=== PATIENT | male | born 1985 | race Caucasian/White ===

== ENCOUNTER 2017-09-23 07:02 | Observation (INO) ==
[2017-09-23] MEDS ORDERED: MORPHINE 4 MG/1 ML VIAL IV STA (07:26)
[2017-09-23] MEDS ORDERED: ONDANSETRON 4 MG/2 ML VIAL IV STA (07:26)
[2017-09-23 07:52] LABS: Basophils % 0.5 % (0.0-0.8); Eosinophils # 0.5 10*3/uL (0.0-0.87); Eosinophils % 5.4 % (0.00-10.9); Hemoglobin 13.7 GM/DL (14.0-18.0); Immature Granulocytes % 0.5 %; Immature Granulocytes Absolute 0.04 #; Lymphocytes % 23.3 % (21.2-54.2); Mean Corpuscular HGB Conc 35.1 GM/DL (32-36); Mean Corpuscular Hemoglobin 31 PG (27-34); Mean Corpuscular Volume 87.6 FL (87-102); Mean Platelet Volume 10.2 FL (9.6-12.0); Monocytes # 0.7 10*3/uL (0.11-0.8); Monocytes % 8.4 % (1.7-12.7); Neutrophils # 5.4 10*3/uL (1.4-7.4); Neutrophils % 61.9 % (38.7-73.9); Platelet Count 226 T/CUMM (130-400); Red Blood Count 4.45 MC/CUMM (3.8-5.5); Red Cell Distribution Width 12.2 % (9.3-17.3); White Blood Count 8.7 T/CUMM (4-12)
[2017-09-23 08:15] LABS: Alanine Aminotransferase 40 U/L (16-61); Albumin 3.6 G/DL (3.4-5.0); Alkaline Phosphatase 87 U/L (45-117); Aspartate Amino Transferase 20 U/L (0-37); Bilirubin,Total < 0.39 MG/DL (0.2-1.0); Blood Urea Nitrogen 20 MG/DL (7-18); Calcium 8.6 MG/DL (8.5-10.1); Glucose 111 MG/DL (74-106); Osmolality,Calculated 284.3 MOS/KG (273-304); Potassium 3.9 MMOL/L (3.5-5.1); Sodium 141 MMOL/L (136-145); Total Protein 7.9 G/DL (6.4-8.3); Troponin I Only < 0.015 NG/ML (0.00-0.045)
[2017-09-23] MEDS ORDERED: KETOROLAC 30 MG/1 ML VIAL IV STA (09:13)
[2017-09-23] MEDS ORDERED: KETOROLAC 30 MG/1 ML VIAL ONE ×2 (09:14→14:13)
[2017-09-23] MEDS ORDERED: cefOXitin 2,000 MG in SYRINGE 1 EACH IV ONE (10:42)
[2017-09-23] MEDS ORDERED: BUPIVACAINE MPF 0.25% /EPI 30 ML VIAL ONE (11:50)
[2017-09-23] MEDS ORDERED: LIDOCAINE 1%/EPI INJ 20 ML VIAL ONE (11:50)
[2017-09-23] MEDS ORDERED: TISSUE ADHESIVE 1 EACH APPLICATOR TOP ONE (11:50)
[2017-09-23] MEDS ORDERED: ONDANSETRON 4 MG/2 ML VIAL IV PRN ×2 (13:48→14:03)
[2017-09-23] MEDS ORDERED: oxyCODONE/ACETAMINOPHEN 5-325 MG TABLET PO PRN (13:48)
[2017-09-23] MEDS ORDERED: PROMETHAZINE INJ 25 MG in SODIUM CHLORIDE 0.9% 50 ML IV PRN (14:03)
[2017-09-23] MEDS ORDERED: MEPERIDINE 25 MG/1 ML VIAL IV PRN (14:03)
[2017-09-23] MEDS ORDERED: diphenhydrAMINE 50 MG/1 ML VIAL IV PRN (14:03)
[2017-09-23] MEDS ORDERED: MORPHINE 10 MG/1 ML VIAL IV PRN (14:03)
[2017-09-23] MEDS ORDERED: fentaNYL 100 MCG/2 ML VIAL ONE (14:12)
[2017-09-23] MEDS ORDERED: SEVOFLURANE 1 UNIT/15 MINUTE INH ONE (14:12)
[2017-09-23] MEDS ORDERED: MIDAZOLAM 2 MG/2 ML VIAL ONE (14:12)
[2017-09-23] MEDS ORDERED: PROPOFOL 200 MG/20 ML VIAL IV ONE (14:12)
[2017-09-23] MEDS ORDERED: ACETAMINOPHEN 1,000 MG/100 ML VIAL IV ONE (14:13)
[2017-09-23] MEDS ORDERED: DEXAMETHASONE 10 MG/1 ML VIAL ONE (14:13)
[2017-09-23] MEDS ORDERED: ONDANSETRON 4 MG/2 ML VIAL ONE ×2 (14:13→14:16)
[2017-09-23] MEDS ORDERED: ROCURONIUM 100 MG/10 ML VIAL IV ONE (14:13)
[2017-09-23] MEDS ORDERED: NEOSTIGMINE 10 MG/10 ML VIAL ONE (14:13)
[2017-09-23] MEDS ORDERED: GLYCOPYRROLATE 0.4 MG/2 ML VIAL ONE (14:13)
[2017-09-23] MEDS ORDERED: LACTATED RINGERS 1,000 ML IV ONE (14:14)
[2017-09-23] MEDS ORDERED: MEPERIDINE 25 MG/1 ML VIAL ONE (14:16)
[2017-09-23] MEDS ORDERED: MORPHINE 4 MG/1 ML VIAL IV PRN (15:06)
[2017-09-23] MEDS: MORPHINE 4 MG/1 ML VIAL IV PRN ×2 (15:17→19:31)
[2017-09-23] MEDS: PANTOPRAZOLE 40 MG TABLET PO SCH (15:58)
[2017-09-23 16:22] LABS: Hematocrit 40.1 VOL% (42.0-52.0); Hemoglobin 13.8 GM/DL (14.0-18.0)
[2017-09-23] MEDS: DEXTROSE 5% NACL 0.45% 1,000 ML IV SCH (18:25)
[2017-09-23] MEDS: oxyCODONE/ACETAMINOPHEN 5-325 MG TABLET PO PRN (19:30)
[2017-09-23 22:17] LABS: Hematocrit 41.2 VOL% (42.0-52.0); Hemoglobin 14.2 GM/DL (14.0-18.0)
[2017-09-24] MEDS: MORPHINE 4 MG/1 ML VIAL IV PRN ×5 (00:35→19:20)
[2017-09-24] MEDS: DEXTROSE 5% NACL 0.45% 1,000 ML IV SCH ×4 (00:51→18:46)
[2017-09-24] MEDS: oxyCODONE/ACETAMINOPHEN 5-325 MG TABLET PO PRN ×4 (02:18→23:45)
[2017-09-24 07:34] LABS: Hematocrit 38.8 VOL% (42.0-52.0); Hemoglobin 13.3 GM/DL (14.0-18.0)
[2017-09-24] MEDS: ENOXAPARIN 40 MG/0.4 ML SYRINGE SUBCUT SCH (09:39)
[2017-09-24] MEDS: PANTOPRAZOLE 40 MG TABLET PO SCH (09:39)
[2017-09-25] MEDS: MORPHINE 4 MG/1 ML VIAL IV PRN ×3 (00:54→12:43)
[2017-09-25] MEDS: DEXTROSE 5% NACL 0.45% 1,000 ML IV SCH ×2 (02:41→12:46)
[2017-09-25] MEDS: oxyCODONE/ACETAMINOPHEN 5-325 MG TABLET PO PRN ×2 (02:45→10:42)
[2017-09-25] MEDS: PANTOPRAZOLE 40 MG TABLET PO SCH (10:33)
[2017-09-25] MEDS: ENOXAPARIN 40 MG/0.4 ML SYRINGE SUBCUT SCH (10:33)
[2017-09-25 12:30] VITALS: BP 119/60
== END 2017-09-25 14:25 | disposition home or self-care (01) ==
LOC: N.EDINP 07:02 → N.ED 07:02 → N.EDINP 12:26 → N.3E 14:45
PROVIDERS: ADMIT Family Medicine; ATTEND Family Medicine
PROC: LAPCHOL (2017-09-23 13:05)